=== PATIENT | female | born 1985 | race Caucasian/White ===

== ENCOUNTER 2020-01-28 01:00 | Emergency (ER) | payer OTHER, SELFPAY ==
[2020-01-28] VITALS (13 sets, daily range): BP systolic 109–120; BP diastolic 76–84; PULSE 68–90; RESP 13–24; TEMP 36.9; O2SAT 68–100; BMI 24.9
--- NOTE | 2020-01-28 01:10 | XRR_ITS ---
PROCEDURE INFORMATION: Exam: XR Left Ankle Exam date and time: 01/28/2020 1:22 AM Age: 34 years old Clinical indication: Injury or trauma; Fall; Initial encounter; Fracture, traumatic; Closed fracture; Ankle; Left; Not specified TECHNIQUE: Imaging protocol: XR Left ankle. Views: 3 or more views. COMPARISON: No relevant prior studies available. FINDINGS: Bones/joints: Trimalleolar fracture with dislocation of the tibial talar joint. Oblique oriented displaced fibular fracture proximal to the ankle mortise. Displaced medial malleolar fracture. Distal posterior tibial fracture. Soft tissues: Soft tissue swelling. XR/XR ankle LT min 3V* [id number] IMPRESSION: Trimalleolar fracture with dislocation of the tibial talar joint.
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
--- NOTE | 2020-01-28 01:31 | XRR_ITS ---
PROCEDURE INFORMATION: Exam: XR Left Ankle Exam date and time: 01/28/2020 2:25 AM Age: 34 years old Clinical indication: Other: Post reduction; Additional info: Post reduc TECHNIQUE: Imaging protocol: XR Left ankle. Views: 1 or 2 views. COMPARISON: CR XR ankle LT min 3V* [id number] 2020-01-28 01:09 FINDINGS: Bones/joints: Improved alignment following reduction. Tibial and fibular fractures are again demonstrated. Soft tissues: Soft tissue swelling. XR/XR ankle LT 2V [id number] IMPRESSION: Improved alignment following reduction.
[2020-01-28] MEDS: lactated ringers 1,000 ML 999 ML IV (01:47)
[2020-01-28] MEDS: morphine 4 mg/mL SDV 1 mL IVP (01:47)
[2020-01-28] MEDS: midazolam 1 mg/mL INJ 2 mL 2 MG IVP (01:53)
[2020-01-28] MEDS: ondansetron 2 mg/ML SDV 2 mL 4 MG IVP (01:53)
[2020-01-28] MEDS: oxyCODONE-APAP 5-325 mg Tablet 2 TAB PO (03:24)
--- NOTE | 2020-01-29 15:20 | DCPLANNER ---
manager drive had message to schedule a follow up appointment for patient with ortho. manager drive called the ortho clinic, spoke with Pat, gave clinic patients information. manager drive was told that patients information would be printed and reviewed. Clinic will call housing case manager and patient with appointment information.
--- NOTE | 2020-01-31 14:30 | DCPLANNER ---
Patient had an appointment scheduled for 01.30.20 with ortho, patient did attend the appointment.
== END 2020-01-28 03:25 | disposition home or self-care (01) ==
PROVIDERS: Emergency Provider Emergency Medicine
DX: S82.852A Displaced trimalleolar fracture of left lower leg, initial encounter for closed fracture (principal); F17.200 Nicotine dependence, unspecified, uncomplicated; W19.XXXA Unspecified fall, initial encounter
CPT/HCPCS: 12345; 27818; 73600; 73610; 96365; 96375; 99282; 99283; 99284; E0114; J2250; J2270; J2405; J3490

== ENCOUNTER 2020-01-30 12:35 | Outpatient (CLI) | payer OTHER, SELFPAY ==
--- NOTE | 2020-01-30 13:15 | CT_ITS ---
WS: [id number] NONCONTRAST CT LEFT ANKLE TECHNIQUE: CT left ankle with coronal and sagittal reformatted images. CLINICAL INFORMATION: fracture COMPARISON: None. DLP: All [facility] scans at [facility] use at least one of these dose optimization techniques: automat ed exposure control; mA and/or kV adjustment per patient size (includes targeted exams where dose is matched to clinical indication); or iterative reconstruction. FINDINGS: Noncontrast CT left ankle. Oblique complex comminuted spiral fracture involving the mid to distal fib germain shaft. Normal lateral malleolus. Prior reduction of the tibiotalar dislocation. Comminuted fractu res involving the posterior and medial malleolus with horizontal fracture extending to the anterior t ibial plafond. This extends to the articular surface. Posterior malleolar fracture involves the artic ular surface. A few tiny fracture fragments displaced along the anterior neck of the talus. Calcaneus is normal in appearance. Normal navicular. Diffuse soft tissue edema. CT/CT ankle LT wo con* [id number] IMPRESSION: 1. Complex slightly comminuted spiral type fracture involving the mid to dista l fibular shaft. Lateral malleolus is intact. 2. Comminuted fractures involving the posterior and medial malleolus with exte nsion to the tibial plafond. This involves the articular surface. 3. Posterior malleolar fracture involves the articular surface. 4. Talus is normal in appearance. 5. Post reduction of the tibiotalar dislocation. 6. Tiny displaced fracture fragments along the anterior neck of the talus.
== END 2020-01-30 12:36 | disposition home or self-care (01) ==
LOC: RADWPI 12:39
PROVIDERS: Visit Provider Specialist
DX: S82.852A Displaced trimalleolar fracture of left lower leg, initial encounter for closed fracture (principal); X58.XXXA Exposure to other specified factors, initial encounter
CPT/HCPCS: 73700

== ENCOUNTER 2020-01-31 05:30 | Day surgery (SDC) | payer OTHER, SELFPAY ==
[2020-01-30 14:30] VITALS: BMI 24.9
[2020-01-31] VITALS (10 sets, daily range): BP systolic 104–136; BP diastolic 74–93; PULSE 81–601; RESP 15–21; TEMP 36.2–36.9; O2SAT 95–99
--- NOTE | 2020-01-31 | XR_ITS ---
WS: [id number] C-ARM RADIOGRAPHS LEFT ANKLE; 5 IMAGES HISTORY: ORIF ANKLE COMPARISON: 01/28/2020 Moderate plate and screw fixation distal fibular fracture in good alignment. 3 screws stabilize a med ial malleolus fracture. Screw fixation also extends through the posterior malleolus fragment. Fractur es are in good position and alignment. XR/XR ankle LT 2V [id number] IMPRESSION: Intraoperative fixation distal fibular fracture in good alignment. Intraoperative fixation medial and posterior malleolus fractures.
--- NOTE | 2020-01-31 | SCC_ITS ---
Procedure Done: Open Reduction internal fixation of the following fractures: distal tibial pilon intra-articular fracture utilizing 2 cannulated headless screws, fibular shaft fracture utilizing a Annalisa 14 hole 1/3 tubular plate, and medial malleolar fracture utilizing 1 headless cannulated screw 261.8 seconds of fluoroscopic guidance, for a cumulative dose of 5.82 mGy, was provided to Dr. Warner by the radiology department. C-arm images of the LEFT ankle were saved for the patient's permanent record. FLAVIO
[2020-01-31] MEDS: CELEcoxib 200 mg Capsule 400 MG PO (05:53)
[2020-01-31] MEDS: sodium chloride 0.9% 1,000 ML 30 ML IV (05:56)
[2020-01-31] MEDS: vancomycin 1,000 MG in sodium chloride 0.9% 250 ML 250 MG IV (06:19)
--- NOTE | 2020-01-31 06:23 | ANES.PREANE2 ---
Pre-Anesthetic Assessment Pre-Anesthetic Assessment: Height/Weight: Height 1.63 m Weight 65.771 kg Temp Pulse Resp BP Pulse Ox 97.1 F L 601 H 18 104/74 97 01/31/20 05:42 01/31/20 05:42 01/31/20 05:42 01/31/20 05:42 01/31/20 05:42 Preop Diagnosis: Left trimalleolar ankle fracture Proposed Procedure: Operation Date: 01/31/20 07:20 Proposed Procedures p ORIF left Ankle trimalleolar fracture with 3D reconstruction 19859/S82.852A(Left) - Stephania Warner MD Familial anesthetic complications: None Was Beta Carin taken within 24 hours: N/A Last intake: Intake Last Liquid Date 01/30/20 Last Liquid Time 20:00 Last Solid Date 01/30/20 Last Solid Time 20:00 Social: Social History: Tobacco Packs per day: 0.5 ppd Exam: Pre-Anes Outpt Exam: alert, oriented x 3, clear to auscultation bilaterally and regular rate & rhythm Airway: Cervical ROM: WNL MP: 3 Dentition: Full Additional comments: permanent retainer (lower) Pulmonary: Pulmonary: Asthma (exercise induced asthma) CV/HEM: CV/HEM: None reported : : None reported Hepatic: Hepatic: None reported GI: GI: None reported Metabolic: Metabolic: None reported Musc/skel: Musc/skel: None reported Neuropsych: Neuropsych: Neuropathy and None reported Comments: Broken foot numb Anesthetic Plan: ASA status: 3 Anesthesia: General and Regional (specify below) Risk of > 500 ml blood loss (7ml/kg in children): No Meds/Allergies Current Medications: Current Medications Generic Name Dose Route Start Last Admin Trade Name Freq PRN Reason Stop Dose Admin Vancomycin HCl 1,0 00 mg/ 250 mls @ 250 mls /hr 01/31/20 05:29 01/31/20 06:19 Sodium Chloride IV 01/31/20 06:28 250 mls/hr ONCE ONE Administration Protocol Sodium Chloride 1,000 mls @ 30 ml s/hr 01/31/20 05:30 01/31/20 05:56 Sodium Chloride 0.9% IV 02/01/20 05:29 30 mls/hr .Q24H ELVIS Administration PFSH Anesthesia PFSH: Social History Smoking and tobacco status: current every day smoker Alcohol intake: current Alcohol intake frequency: few times a month Female Reproductive History: Date of last menstrual period: 12/31/19 Data Anesthesia Cardiac Studies: No Data to Display
[2020-01-31 06:28] LABS: HCG, Serum Qual Negative (Negative)
[2020-01-31] MEDS: midazolam 1 mg/mL INJ 5 ML 5 MG IVP (06:52)
--- NOTE | 2020-01-31 06:52 | W.PM.OPSUD ---
Surgery/Procedure H&P Update DATE OF PROCEDURE: January 31, 2020 DATE H&P PERFORMED: 01/30/20 H&P UPDATE INFORMATION: I have reviewed H&P completed within last 30 days, No changes to prior documentation and H&P is in [facility] [place] on date indicated PREOP DIAGNOSIS: Left trimalleolar ankle fracture PLANNED PROCEDURE: Operation Date: 01/31/20 07:20 Proposed Procedures p ORIF left Ankle trimalleolar fracture with 3D reconstruction 41265/S82.852A(Left) - Stephania Warner MD
--- NOTE | 2020-01-31 07:34 | ANES.PROC ---
Anesthesia Procedures Procedure/Date: 01/31/20 Nerve Block ^: Nerve Block 1: Main Anesthesia: general anesthesia Time Out Performed: Yes Consent: requested by attending/covering physician, from patient and patient agrees to proceed Nerve block location: popliteal (L) Anesthesia monitors applied: pulse oximetry, EKG, BP cuff and oxygen Nerve block position: supine Anesthetic Used: ropivicaine 0.5% and with decadron (3 mg) Amount of anesthesia used (mL): 30 Ultrasound used to: recognize landmarks Nerve Stimulator Used?: No Interscalene/Femoral BLK: 4 stimuplex 21 g needle used for position and inplane approach Injection: neg aspiration of heme Patient Tolerated Procedure: well and no complications Complications: none
--- NOTE | 2020-01-31 07:36 | ANES.PROC ---
Anesthesia Procedures Procedure/Date: 01/31/20 Nerve Block ^: Nerve Block 2: Main Anesthesia: general anesthesia Time Out Performed: Yes Consent: requested by attending/covering physician, from patient, risks and benefits reviewed and patient agrees to proceed Nerve block location: adductor canal (L ) Anesthesia monitors applied: pulse oximetry, EKG, BP cuff and oxygen Nerve block position: supine Anesthetic Used: ropivicaine 0.5% and with decadron ( 1 mg) Amount of anesthesia used (mL): 10 Ultrasound used to: recognize landmarks Nerve Stimulator Used?: No Interscalene/Femoral BLK: 4 stimuplex 21 g needle used for position and inplane approach Patient Tolerated Procedure: well Complications: none and pain with procedure
[2020-01-31] MEDS: vancomycin 1,000 MG SDV 1000 MG IRRIGATION (07:42)
--- NOTE | 2020-01-31 07:54 | SUR.OPER ---
0750 - pt's mother jaydon notified of surgery start via her cell
--- NOTE | 2020-01-31 10:03 | SUR.PHASEI ---
1001 PATIENT TO PACU AT THIS TIME FROM OR. RR EVEN AND UNLABORED. PWD. DENIES PAIN, DROWSY. BOOT IN PLACE TO LEFT FOOT WITH CAP REFILL TO TOES INTACT.
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
--- NOTE | 2020-01-31 10:32 | SUR.PHASEI ---
1026 PATIENT TO OPS AT THIS TIME FROM PACU. DENIES PAIN. A/OX3. WALKING BOOT IN PLACE TO LEFT ANKLE.
== END 2020-01-31 11:30 | disposition home or self-care (01) ==
PROVIDERS: Anesthesiology; Visit Provider Specialist
PROC: (CPT 27823; principal; 2020-01-31 07:00)
DX: S82.852A Displaced trimalleolar fracture of left lower leg, initial encounter for closed fracture (principal); Y93.83 Activity, rough housing and horseplay; Z82.49 Family history of ischemic heart disease and other diseases of the circulatory system; Z83.3 Family history of diabetes mellitus; F17.210 Nicotine dependence, cigarettes, uncomplicated; J45.909 Unspecified asthma, uncomplicated
CPT/HCPCS: 27823; 12345; 36415; 73600; 76000; 84703; C1713; J0131; J1100; J1885; J2001; J2250; J2405; J2704; J2765; J2795; J3010; J3370; J3490; J7030; J7050

== ENCOUNTER → 2020-02-09 10:20 | Outpatient (BNVA) | payer OTHER, SELFPAY | PROVIDERS: Visit Provider Specialist | DX: M25.572 Pain in left ankle and joints of left foot (principal) | CPT/HCPCS: 73610 ==

== ENCOUNTER → 2020-02-19 11:21 | Outpatient (BNVA) | payer OTHER, SELFPAY | PROVIDERS: Visit Provider Specialist | DX: S82.52XA Displaced fracture of medial malleolus of left tibia, initial encounter for closed fracture (principal); S82.402A Unspecified fracture of shaft of left fibula, initial encounter for closed fracture | CPT/HCPCS: 73610 ==

== ENCOUNTER → 2020-03-04 11:52 | Outpatient (BNVA) | payer OTHER, SELFPAY | PROVIDERS: Visit Provider Specialist | DX: S82.52XA Displaced fracture of medial malleolus of left tibia, initial encounter for closed fracture (principal); S82.402A Unspecified fracture of shaft of left fibula, initial encounter for closed fracture; S82.302A Unspecified fracture of lower end of left tibia, initial encounter for closed fracture; S82.852A Displaced trimalleolar fracture of left lower leg, initial encounter for closed fracture | CPT/HCPCS: 73610 ==

== ENCOUNTER → 2020-03-20 15:51 | Outpatient (BNVA) | payer OTHER, SELFPAY | PROVIDERS: Visit Provider Specialist | DX: S82.52XA Displaced fracture of medial malleolus of left tibia, initial encounter for closed fracture (principal); S82.852A Displaced trimalleolar fracture of left lower leg, initial encounter for closed fracture; X58.XXXA Exposure to other specified factors, initial encounter | CPT/HCPCS: 73610 ==

== ENCOUNTER → 2020-04-03 11:46 | Outpatient (BNVA) | payer OTHER, SELFPAY | PROVIDERS: Visit Provider Specialist | DX: S82.52XA Displaced fracture of medial malleolus of left tibia, initial encounter for closed fracture (principal); S82.852A Displaced trimalleolar fracture of left lower leg, initial encounter for closed fracture; S82.452A Displaced comminuted fracture of shaft of left fibula, initial encounter for closed fracture; S82.872A Displaced pilon fracture of left tibia, initial encounter for closed fracture; X58.XXXA Exposure to other specified factors, initial encounter | CPT/HCPCS: 73610 ==

== ENCOUNTER 2020-04-03 14:07 | Outpatient (CLI) | payer OTHER, SELFPAY | END 2020-04-03 14:08 | disposition home or self-care (01) | LOC: SPT 14:07 | PROVIDERS: Visit Provider Specialist | DX: Z46.89 Encounter for fitting and adjustment of other specified devices (principal); S82.52XD Displaced fracture of medial malleolus of left tibia, subsequent encounter for closed fracture with routine healing; X58.XXXD Exposure to other specified factors, subsequent encounter | CPT/HCPCS: 97760; L1902 ==

== ENCOUNTER 2020-04-08 16:13 | Outpatient (RCR) | payer OTHER, SELFPAY | END 2020-04-30 23:59 | disposition home or self-care (01) | LOC: MPT 16:13 | PROVIDERS: Referring Provider Specialist; Visit Provider Specialist | DX: Z47.89 Encounter for other orthopedic aftercare (principal); S82.852D Displaced trimalleolar fracture of left lower leg, subsequent encounter for closed fracture with routine healing; X58.XXXD Exposure to other specified factors, subsequent encounter | CPT/HCPCS: 97110; 97116; 97140; 97161; 97530 ==

== ENCOUNTER 2020-05-01 06:00 | Outpatient (RCR) | payer OTHER, SELFPAY | END 2020-05-31 23:59 | disposition home or self-care (01) | LOC: MPT 06:00 | PROVIDERS: Referring Provider Specialist; Visit Provider Specialist | DX: Z47.89 Encounter for other orthopedic aftercare (principal); S82.852D Displaced trimalleolar fracture of left lower leg, subsequent encounter for closed fracture with routine healing; X58.XXXD Exposure to other specified factors, subsequent encounter | CPT/HCPCS: 97110; 97140; 97530 ==

== ENCOUNTER → 2020-06-06 15:56 | Outpatient (BNVA) | payer OTHER, SELFPAY | PROVIDERS: Visit Provider Specialist | DX: S82.52XD Displaced fracture of medial malleolus of left tibia, subsequent encounter for closed fracture with routine healing (principal); S82.452D Displaced comminuted fracture of shaft of left fibula, subsequent encounter for closed fracture with routine healing; X58.XXXA Exposure to other specified factors, initial encounter | CPT/HCPCS: 73610 ==